=== PATIENT | female | born 1975 | race Caucasian/White ===

== ENCOUNTER → 2023-12-11 | Outpatient (CLI) | payer OTHER ==
[~2023-12-11] MED LIST: BRIN20TA PO; HOMEMED PO; HYDROCODONE BIT1 T11 PO; METAXALONE800 M1 PO; MOBIC7.5 MG PO; NAPROXEN500 MG PO; PREDNICOT10 MG PO; PRINIVIL10 MG PO; QUETIAPINE FUM100 M1 PO; SEROQUEL100 MG PO; STRATTERA40 MG PO; STRATTERA80 MG PO; VITAMIN D2400 IU PO; ZESTRIL,PRINIVI10 MG PO
== END | disposition home or self-care (01) ==
LOC: RAD 10:50
PROVIDERS: ATTEND Orthopaedic Surgery
DX: M89.9 Disorder of bone, unspecified (principal)